=== PATIENT | female | born 1935 | race Caucasian/White ===

== ENCOUNTER 2019-07-11 18:27 | Inpatient (IN) | payer MEDICARE, OTHER ==
[~2019-07-11] VITALS: Ht 160 cm; Wt 53.2 kg
[2019-07-11] MEDS ORDERED: Z GUARD REMEDY PASTE 57 GM TUBE TOP PRN (19:30)
[2019-07-11 22:08] VITALS: BP 151/65
[2019-07-11] MEDS ORDERED: CALC-494 PO (22:13)
[2019-07-11] MEDS ORDERED: CLOP75TA15 PO (22:13)
[2019-07-11] MEDS ORDERED: DOCU-141 PO (22:13)
[2019-07-11] MEDS ORDERED: PANT40TA2 PO (22:13)
[2019-07-11] MEDS ORDERED: MECL-102 PO (22:13)
[2019-07-11] MEDS ORDERED: SENN-22 PO (22:13)
[2019-07-11] MEDS ORDERED: POLY17PO4 GT (22:13)
[2019-07-11] MEDS ORDERED: ACET-2154 PO (22:13)
[2019-07-11] MEDS ORDERED: IBUP-1957 PO (22:13)
[2019-07-11] MEDS ORDERED: TRAZ-182 PO (22:13)
[2019-07-11] MEDS ORDERED: ATOR80TA PO (22:13)
[2019-07-11] MEDS ORDERED: DEXTROSE 50% 50 ML DISP.SYRIN IV PRN (22:15)
[2019-07-12 04:20] VITALS: BP 154/62
[2019-07-12] MEDS: BLOOD SUGAR DIAGNOSTIC 1 EACH STRIP VI SCH ×4 (06:36→20:21)
[2019-07-12 07:14] LABS: BASOPHILS % (AUTO) 0.4 % (0.0-2.0); EOSINOPHILS % (AUTO) 0.7 % (0.0-7.0); HEMATOCRIT 37.9 % (31.2-41.9); LYMPHOCYTES # (AUTO) 1.5 K/uL (20.0-40.0); LYMPHOCYTES % (AUTO) 30.4 % (20.5-51.5); MEAN CORPUSCULAR HGB CONC 37 g/dL (32.3-35.6); MEAN CORPUSCULAR VOLUME 89.2 fL (75.5-95.3); MONOCYTES # (AUTO) 0.5 K/uL (2.0-10.0); MONOCYTES % (AUTO) 9.4 % (0.0-11.0); NEUTROPHILS % (AUTO) 59.1 % (38.5-71.5); PLATELET COUNT (AUTO) 158 K/uL (179-408); RED BLOOD CELL COUNT(AUTO) 4.25 MIL/uL (3.63-4.92)
[2019-07-12 07:25] LABS: CARBON DIOXIDE 27 mmol/L (21-32); CHLORIDE 102 mmol/L (98-107); CREATININE 0.8 mg/dL (0.6-1.3); GLUCOSE 126 mg/dL (74-106); UREA NITROGEN, BLOOD 8 mg/dL (7-18)
[2019-07-12 07:30] VITALS: BP 174/73
[2019-07-12] MEDS ORDERED: MAGNESIUM CITRATE 296 ML BOTTLE PO ONE (11:15)
[2019-07-12] MEDS: AMLODIPINE 5 MG TABLET PO SCH (11:25)
[2019-07-12] MEDS ORDERED: MECLIZINE HCL 25 MG TABLET PO PRN (12:00)
[2019-07-12] MEDS ORDERED: CALCIUM CARBONATE 500 MG TAB.CHEW PO PRN (12:00)
[2019-07-12] MEDS ORDERED: DOCUSATE SODIUM 100 MG CAPSULE PO PRN (12:00)
[2019-07-12] MEDS ORDERED: IBUPROFEN 800 MG TABLET PO PRN (12:00)
[2019-07-12] MEDS ORDERED: MIRALAX 17 GM POWD.PACK GT PRN (12:00)
[2019-07-12] MEDS ORDERED: ACETAMINOPHEN 325 MG TABLET PO PRN (12:00)
[2019-07-12] MEDS: CLOPIDOGREL 75 MG TABLET PO SCH (14:06)
[2019-07-12] MEDS: PANTOPRAZOLE SODIUM 40 MG TABLET.DR PO SCH (14:07)
[2019-07-12 16:45] VITALS: BP 133/61
[2019-07-12] MEDS: ONDANSETRON ODT 4 MG TAB.RAPDIS SL PRN (19:33)
[2019-07-12] MEDS: TRAZODONE 50 MG TABLET PO SCH ×2 (20:21→21:30)
[2019-07-12] MEDS: ATORVASTATIN 40 MG TABLET PO SCH (20:21)
[2019-07-12] MEDS: SENNOSIDES 1 TABLET PO SCH (20:21)
[2019-07-12] MEDS: SENNOSIDES/DOCUSATE SODIUM TABLET PO SCH (20:21)
[2019-07-12 20:32] VITALS: BP 135/67
[2019-07-13 06:13] VITALS: BP 156/69
[2019-07-13] MEDS: BLOOD SUGAR DIAGNOSTIC 1 EACH STRIP VI SCH ×4 (06:43→21:28)
[2019-07-13 07:21] LABS: BASOPHILS % (AUTO) 0.3 % (0.0-2.0); EOSINOPHILS % (AUTO) 0.6 % (0.0-7.0); HEMATOCRIT 39.1 % (31.2-41.9); HEMOGLOBIN 13.6 g/dL (10.9-14.3); LYMPHOCYTES # (AUTO) 1.1 K/uL (20.0-40.0); MEAN CORPUSCULAR HEMOGLOBIN 30.9 uug (24.7-32.8); MEAN CORPUSCULAR HGB CONC 35 g/dL (32.3-35.6); MEAN CORPUSCULAR VOLUME 88.9 fL (75.5-95.3); MONOCYTES # (AUTO) 0.6 K/uL (2.0-10.0); MONOCYTES % (AUTO) 11.3 % (0.0-11.0); NEUTROPHILS # (AUTO) 3.5 K/uL (1.8-8.9); NEUTROPHILS % (AUTO) 66.8 % (38.5-71.5); PLATELET COUNT (AUTO) 158 K/uL (179-408); WHITE BLOOD COUNT (AUTO) 5.3 K/uL (3.8-11.8)
[2019-07-13 07:26] LABS: CARBON DIOXIDE 32 mmol/L (21-32); CHLORIDE 99 mmol/L (98-107); GLUCOSE 134 mg/dL (74-106); MAGNESIUM 2.6 mg/dL (1.8-2.4); PHOSPHOROUS 4.5 mg/dL (2.5-4.9); POTASSIUM 3.8 mmol/L (3.5-5.1); UREA NITROGEN, BLOOD 11 mg/dL (7-18)
[2019-07-13] MEDS: CLOPIDOGREL 75 MG TABLET PO SCH (08:06)
[2019-07-13] MEDS: PANTOPRAZOLE SODIUM 40 MG TABLET.DR PO SCH (08:07)
[2019-07-13] MEDS: AMLODIPINE 5 MG TABLET PO SCH (08:07)
[2019-07-13] MEDS: ONDANSETRON ODT 4 MG TAB.RAPDIS SL PRN (08:09)
[2019-07-13 08:15] VITALS: BP 133/63
[2019-07-13 18:41] VITALS: BP 138/66
[2019-07-13 20:00] VITALS: BP 132/63
[2019-07-13] MEDS: ATORVASTATIN 40 MG TABLET PO SCH (21:19)
[2019-07-13] MEDS: SENNOSIDES/DOCUSATE SODIUM TABLET PO SCH (21:19)
[2019-07-13] MEDS: SENNOSIDES 1 TABLET PO SCH (21:19)
[2019-07-13] MEDS: TRAZODONE 50 MG TABLET PO SCH ×2 (21:19→21:48)
[2019-07-14 05:00] VITALS: BP 124/62
[2019-07-14] MEDS: BLOOD SUGAR DIAGNOSTIC 1 EACH STRIP VI SCH ×4 (07:23→20:11)
[2019-07-14] MEDS: PANTOPRAZOLE SODIUM 40 MG TABLET.DR PO SCH (08:33)
[2019-07-14] MEDS: CLOPIDOGREL 75 MG TABLET PO SCH (08:33)
[2019-07-14] MEDS: AMLODIPINE 5 MG TABLET PO SCH (08:36)
[2019-07-14 09:47] VITALS: BP 131/56
[2019-07-14 16:47] VITALS: BP 108/60
[2019-07-14] MEDS ORDERED: BISACODYL 10 MG SUPP.RECT RC PRN (18:00)
[2019-07-14 19:30] VITALS: BP 124/53
[2019-07-14] MEDS: ATORVASTATIN 40 MG TABLET PO SCH (20:12)
[2019-07-14] MEDS: TRAZODONE 50 MG TABLET PO SCH ×2 (20:12→20:55)
[2019-07-14] MEDS: SENNOSIDES 1 TABLET PO SCH (20:12)
[2019-07-14] MEDS: SENNOSIDES/DOCUSATE SODIUM TABLET PO SCH (20:12)
[2019-07-15 06:06] VITALS: BP 140/63
[2019-07-15] MEDS: BLOOD SUGAR DIAGNOSTIC 1 EACH STRIP VI SCH ×4 (06:30→20:24)
[2019-07-15] MEDS: CLOPIDOGREL 75 MG TABLET PO SCH (08:23)
[2019-07-15] MEDS: AMLODIPINE 5 MG TABLET PO SCH (08:23)
[2019-07-15] MEDS: PANTOPRAZOLE SODIUM 40 MG TABLET.DR PO SCH (08:23)
[2019-07-15 09:28] VITALS: BP 129/63
[2019-07-15 16:35] VITALS: BP 120/58
[2019-07-15] MEDS: INSULIN REGULAR, HUMAN 300 UNIT/3 ML VIAL SQ PRN ×2 (17:25→20:27)
[2019-07-15] MEDS: TRAZODONE 50 MG TABLET PO SCH ×2 (20:17→20:55)
[2019-07-15] MEDS: SENNOSIDES/DOCUSATE SODIUM TABLET PO SCH (20:18)
[2019-07-15] MEDS: ATORVASTATIN 40 MG TABLET PO SCH (20:18)
[2019-07-15] MEDS: SENNOSIDES 1 TABLET PO SCH (20:21)
[2019-07-15 21:00] VITALS: BP 106/51
[2019-07-16 04:30] VITALS: BP 144/73
[2019-07-16] MEDS: BLOOD SUGAR DIAGNOSTIC 1 EACH STRIP VI SCH ×4 (06:32→21:25)
[2019-07-16 08:04] VITALS: BP 106/63
[2019-07-16] MEDS: PANTOPRAZOLE SODIUM 40 MG TABLET.DR PO SCH (08:34)
[2019-07-16] MEDS: CLOPIDOGREL 75 MG TABLET PO SCH (08:34)
[2019-07-16] MEDS: AMLODIPINE 5 MG TABLET PO SCH (08:34)
[2019-07-16] MEDS ORDERED: MAGNESIUM CITRATE 296 ML BOTTLE PO PRN (11:45)
[2019-07-16 15:13] VITALS: BP 111/62
[2019-07-16 20:17] VITALS: BP 110/58
[2019-07-16] MEDS: ATORVASTATIN 40 MG TABLET PO SCH (21:24)
[2019-07-16] MEDS: TRAZODONE 50 MG TABLET PO SCH ×2 (21:24→22:15)
[2019-07-16] MEDS: SENNOSIDES/DOCUSATE SODIUM TABLET PO SCH (21:25)
[2019-07-16] MEDS: SENNOSIDES 1 TABLET PO SCH (21:25)
[2019-07-16] MEDS: INSULIN REGULAR, HUMAN 300 UNIT/3 ML VIAL SQ PRN (21:26)
[2019-07-17 04:52] VITALS: BP 141/64
[2019-07-17] MEDS: BLOOD SUGAR DIAGNOSTIC 1 EACH STRIP VI SCH ×5 (06:21→20:41)
[2019-07-17 07:05] LABS: BASOPHILS % (AUTO) 0.3 % (0.0-2.0); EOSINOPHILS % (AUTO) 0.4 % (0.0-7.0); HEMATOCRIT 36.3 % (31.2-41.9); HEMOGLOBIN 13.2 g/dL (10.9-14.3); LYMPHOCYTES # (AUTO) 1.4 K/uL (20.0-40.0); LYMPHOCYTES % (AUTO) 24.8 % (20.5-51.5); MEAN CORPUSCULAR HEMOGLOBIN 32.5 uug (24.7-32.8); MEAN CORPUSCULAR HGB CONC 36 g/dL (32.3-35.6); MEAN CORPUSCULAR VOLUME 89.6 fL (75.5-95.3); MONOCYTES # (AUTO) 0.6 K/uL (2.0-10.0); MONOCYTES % (AUTO) 10.1 % (0.0-11.0); NEUTROPHILS # (AUTO) 3.8 K/uL (1.8-8.9); NEUTROPHILS % (AUTO) 64.4 % (38.5-71.5); PLATELET COUNT (AUTO) 183 K/uL (179-408); RED BLOOD CELL COUNT(AUTO) 4.05 MIL/uL (3.63-4.92); WHITE BLOOD COUNT (AUTO) 5.8 K/uL (3.8-11.8)
[2019-07-17 07:31] LABS: ALANINE AMINOTRANSFERASE 11 U/L (14-59); ALKALINE PHOSPHATASE 60 U/L (50-136); ASPARTATE AMINOTRANSFERASE 11 U/L (15-37); BILIRUBIN,TOTAL 1.2 mg/dL (0.2-1.0); CARBON DIOXIDE 30 mmol/L (21-32); CHLORIDE 102 mmol/L (98-107); CREATININE 0.9 mg/dL (0.6-1.3); GLUCOSE 123 mg/dL (74-106); MAGNESIUM 1.9 mg/dL (1.8-2.4); PHOSPHOROUS 3.8 mg/dL (2.5-4.9); POTASSIUM 4.9 mmol/L (3.5-5.1); TOTAL PROTEIN, SERUM 6.8 g/dL (6.4-8.2); UREA NITROGEN, BLOOD 13 mg/dL (7-18)
[2019-07-17] MEDS: CLOPIDOGREL 75 MG TABLET PO SCH (08:10)
[2019-07-17] MEDS: PANTOPRAZOLE SODIUM 40 MG TABLET.DR PO SCH (08:10)
[2019-07-17] MEDS: AMLODIPINE 5 MG TABLET PO SCH (08:10)
[2019-07-17 09:35] VITALS: BP 125/48
[2019-07-17] MEDS: INSULIN REGULAR, HUMAN 300 UNIT/3 ML VIAL SQ PRN (11:38)
[2019-07-17 12:05] LABS: *BILIRUBIN,URIN NEGATIVE (NEGATIVE); *BLOOD, URINE 1+ (NEGATIVE); *CLARITY,URINE CLOUDY (CLEAR); *COLOR,URINE YELLOW (YELLOW); *KETONES,URINE NEGATIVE (NEGATIVE); *UROBILINOGEN,URINE 0.2 E.U./dl (NORMAL); LEUKOCYTE ESTERASE ,URINE 3+ (NEGATIVE); NITRITE, URINE POSITIVE (NEGATIVE); UGLUCOSE NEGATIVE (NEGATIVE)
[2019-07-17 13:02] LABS: BACTERIA,URINE MANY /HPF (NONE SEEN); SQUAMOUS EPITHELIAL CELL,UR FEW /HPF (NONE SEEN); WBC,URINE TNTC /HPF (0-3)
[2019-07-17 16:36] VITALS: BP 127/55
[2019-07-17] MEDS: CEphaleXIN 250 MG CAPSULE PO SCH (17:08)
[2019-07-17] MEDS: SENNOSIDES 1 TABLET PO SCH (20:37)
[2019-07-17] MEDS: SENNOSIDES/DOCUSATE SODIUM TABLET PO SCH (20:37)
[2019-07-17] MEDS: TRAZODONE 50 MG TABLET PO SCH ×2 (20:37→21:30)
[2019-07-17] MEDS: ATORVASTATIN 40 MG TABLET PO SCH (20:44)
[2019-07-17 21:07] VITALS: BP 115/67
[2019-07-17] MEDS ORDERED: METHADONE HCL 10 MG TABLET PO PRN (21:45)
[2019-07-18 05:08] VITALS: BP 141/70
[2019-07-18] MEDS: BLOOD SUGAR DIAGNOSTIC 1 EACH STRIP VI SCH ×4 (06:38→20:39)
[2019-07-18] MEDS: CEphaleXIN 250 MG CAPSULE PO SCH ×3 (08:01→16:52)
[2019-07-18] MEDS: CLOPIDOGREL 75 MG TABLET PO SCH (08:01)
[2019-07-18] MEDS: PANTOPRAZOLE SODIUM 40 MG TABLET.DR PO SCH (08:01)
[2019-07-18] MEDS: AMLODIPINE 5 MG TABLET PO SCH (08:01)
[2019-07-18 08:48] VITALS: BP 116/66
[2019-07-18 17:12] VITALS: BP 116/74
[2019-07-18] MEDS: SENNOSIDES/DOCUSATE SODIUM TABLET PO SCH ×2 (20:36→20:43)
[2019-07-18] MEDS: SENNOSIDES 1 TABLET PO SCH ×2 (20:36→20:44)
[2019-07-18] MEDS: ATORVASTATIN 40 MG TABLET PO SCH (20:36)
[2019-07-18] MEDS: TRAZODONE 50 MG TABLET PO SCH ×2 (20:36→21:30)
[2019-07-18 21:46] VITALS: BP 103/61
[2019-07-19] MEDS: ONDANSETRON ODT 4 MG TAB.RAPDIS SL PRN (00:56)
[2019-07-19 05:24] VITALS: BP 126/66
[2019-07-19] MEDS: BLOOD SUGAR DIAGNOSTIC 1 EACH STRIP VI SCH ×5 (06:24→20:58)
[2019-07-19 07:15] VITALS: BP 123/59
[2019-07-19] MEDS: AMLODIPINE 5 MG TABLET PO SCH (08:14)
[2019-07-19] MEDS: CLOPIDOGREL 75 MG TABLET PO SCH (08:14)
[2019-07-19] MEDS: PANTOPRAZOLE SODIUM 40 MG TABLET.DR PO SCH (08:14)
[2019-07-19] MEDS: CEphaleXIN 250 MG CAPSULE PO SCH ×3 (08:15→16:46)
[2019-07-19 16:16] VITALS: BP 103/54
[2019-07-19 20:17] VITALS: BP 104/47
[2019-07-19] MEDS: TRAZODONE 50 MG TABLET PO SCH ×2 (20:53→21:30)
[2019-07-19] MEDS: ATORVASTATIN 40 MG TABLET PO SCH (20:53)
[2019-07-19] MEDS: SENNOSIDES/DOCUSATE SODIUM TABLET PO SCH (20:54)
[2019-07-19] MEDS: SENNOSIDES 1 TABLET PO SCH (20:54)
[2019-07-20 05:07] VITALS: BP 100/47
[2019-07-20] MEDS: BLOOD SUGAR DIAGNOSTIC 1 EACH STRIP VI SCH ×4 (06:34→20:23)
[2019-07-20 08:00] VITALS: BP 108/49
[2019-07-20] MEDS: AMLODIPINE 5 MG TABLET PO SCH (09:00)
[2019-07-20] MEDS: PANTOPRAZOLE SODIUM 40 MG TABLET.DR PO SCH (10:02)
[2019-07-20] MEDS: CEphaleXIN 250 MG CAPSULE PO SCH ×3 (10:04→17:11)
[2019-07-20] MEDS: CLOPIDOGREL 75 MG TABLET PO SCH (10:05)
[2019-07-20 17:07] VITALS: BP 122/54
[2019-07-20] MEDS: TRAZODONE 50 MG TABLET PO SCH ×2 (20:22→21:30)
[2019-07-20] MEDS: SENNOSIDES/DOCUSATE SODIUM TABLET PO SCH (20:22)
[2019-07-20] MEDS: ATORVASTATIN 40 MG TABLET PO SCH (20:22)
[2019-07-20] MEDS: SENNOSIDES 1 TABLET PO SCH (20:23)
[2019-07-20] MEDS: INSULIN REGULAR, HUMAN 300 UNIT/3 ML VIAL SQ PRN (20:23)
[2019-07-20 20:31] VITALS: BP 111/52
[2019-07-21 00:40] VITALS: BP 130/79
[2019-07-21] MEDS: BLOOD SUGAR DIAGNOSTIC 1 EACH STRIP VI SCH ×4 (06:30→20:19)
[2019-07-21 08:00] VITALS: BP 109/58
[2019-07-21] MEDS: AMLODIPINE 5 MG TABLET PO SCH (09:00)
[2019-07-21] MEDS: PANTOPRAZOLE SODIUM 40 MG TABLET.DR PO SCH (09:22)
[2019-07-21] MEDS: CLOPIDOGREL 75 MG TABLET PO SCH (09:23)
[2019-07-21] MEDS: CEphaleXIN 250 MG CAPSULE PO SCH ×3 (09:23→18:01)
[2019-07-21 17:42] VITALS: BP 125/70
[2019-07-21] MEDS: SENNOSIDES/DOCUSATE SODIUM TABLET PO SCH (20:18)
[2019-07-21] MEDS: TRAZODONE 50 MG TABLET PO SCH ×2 (20:18→21:30)
[2019-07-21] MEDS: SENNOSIDES 1 TABLET PO SCH (20:18)
[2019-07-21] MEDS: ATORVASTATIN 40 MG TABLET PO SCH (20:18)
[2019-07-21] MEDS: INSULIN REGULAR, HUMAN 300 UNIT/3 ML VIAL SQ PRN (20:19)
[2019-07-21 20:23] VITALS: BP 111/52
[2019-07-22 05:04] VITALS: BP 146/71
[2019-07-22] MEDS: ONDANSETRON ODT 4 MG TAB.RAPDIS SL PRN (06:11)
[2019-07-22] MEDS: BLOOD SUGAR DIAGNOSTIC 1 EACH STRIP VI SCH ×4 (06:36→20:56)
[2019-07-22] MEDS: PANTOPRAZOLE SODIUM 40 MG TABLET.DR PO SCH (08:01)
[2019-07-22] MEDS: AMLODIPINE 5 MG TABLET PO SCH (08:01)
[2019-07-22] MEDS: CLOPIDOGREL 75 MG TABLET PO SCH (08:01)
[2019-07-22] MEDS: CEphaleXIN 250 MG CAPSULE PO SCH ×3 (08:03→16:51)
[2019-07-22 09:20] VITALS: BP 119/48
[2019-07-22 16:45] VITALS: BP 118/58
[2019-07-22 20:00] VITALS: BP 100/46
[2019-07-22] MEDS: SENNOSIDES/DOCUSATE SODIUM TABLET PO SCH (20:53)
[2019-07-22] MEDS: ATORVASTATIN 40 MG TABLET PO SCH (20:53)
[2019-07-22] MEDS: SENNOSIDES 1 TABLET PO SCH (20:53)
[2019-07-22] MEDS: TRAZODONE 50 MG TABLET PO SCH ×2 (20:53→21:30)
[2019-07-23 05:25] VITALS: BP 124/57
[2019-07-23] MEDS: BLOOD SUGAR DIAGNOSTIC 1 EACH STRIP VI SCH (06:36)
[2019-07-23 07:35] VITALS: BP 116/61
[2019-07-23] MEDS: CLOPIDOGREL 75 MG TABLET PO SCH (08:31)
[2019-07-23] MEDS: PANTOPRAZOLE SODIUM 40 MG TABLET.DR PO SCH (08:31)
[2019-07-23] MEDS: CEphaleXIN 250 MG CAPSULE PO SCH (08:31)
[2019-07-23 08:32] VITALS: BP 116/61
[2019-07-23] MEDS: AMLODIPINE 5 MG TABLET PO SCH (08:32)
== END 2019-07-23 11:20 | disposition home health service (06) | DRG 57 ==
PROVIDERS: ADMIT Physical Medicine & Rehabilitation Pain Medicine; ATTEND Physical Medicine & Rehabilitation Pain Medicine
DX: I69.393 Ataxia following cerebral infarction (principal); N39.0 Urinary tract infection, site not specified; E11.9 Type 2 diabetes mellitus without complications; K21.9 Gastro-esophageal reflux disease without esophagitis; I69.398 Other sequelae of cerebral infarction; K59.00 Constipation, unspecified; Z88.8 Allergy status to other drugs, medicaments and biological substances; R26.9 Unspecified abnormalities of gait and mobility; R53.1 Weakness; J84.89 Other specified interstitial pulmonary diseases; I10 Essential (primary) hypertension; I65.23 Occlusion and stenosis of bilateral carotid arteries; M85.80 Other specified disorders of bone density and structure, unspecified site; R29.6 Repeated falls; Z96.642 Presence of left artificial hip joint; Z90.49 Acquired absence of other specified parts of digestive tract
CPT/HCPCS: 36415; 83735; 84100; 85025; 87077; 87086; A4663; J1815; J8597; Q0162